=== PATIENT | male | born 1960 | race Caucasian/White ===

== ENCOUNTER 2016-09-24 18:09 | Inpatient (IN) | payer OTHER ==
[~2016-09-24] VITALS: Ht 167.6 cm; Wt 77.3 kg
[2016-09-24 19:10] VITALS: BP 122/74; PULSE 88; RESP 16; O2SAT 96
--- NOTE | 2016-09-24 21:38 | ED.REPORT ---
HPI-Psychiatric Illness Date of Service Sep 24, 2016 ED Provider: Ezio Hook MD This is a 56 year old male presenting to the emergency department due to suicidal ideation of unknown onset. Patient states that his spouse five months ago and that he has been walking through traffic to kill himself recently. Reports some hemoptysis and EtOH consumption today. Recently moved from [place]. Pt had an ED visit at [facility] in [place] yesterday with similar presentation. Records indicate that he reported suicidal ideation with auditory hallucinations, he hears his 's voice telling him to kill himself by walking in traffic. 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 Complaint: Psychiatric Complaint Nursing Notes Reviewed: Yes Allergies: Coded Allergies: No Known Allergies (Unverified , 09/24/16) General Time Seen by MD: 21:37 Chief Complaint Depressed Hx Obtained From: Patient Onset Occurred: Just prior to arrival Symptom Duration: Since onset Pertinent Negative: Pt denies other symptoms Recent Healthcare: No recent doctor visit, No recent hospitalization Similar Sx Previous: No Risk-Psychiatric Illness Suicide Risk Stratification RF Statements: Risk factors reviewed, No risk factors Past Medical History Past Medical History Chronic back pain COPD Lumbar degenerative disc disease Depression HTN PTSD Stroke Past Surgical History L knee surgery Reports: Appendectomy Social History Other Social History: Homeless Ambulatory Status Independent Review of Systems Unable to Obtain ROS Intoxicated (limited) Constitutional: Denies: Chills, Fever Respiratory: Reports: Prod cough, bloody Psychiatric: Reports: Depression, Suicidal ideation Physical Exam Initial Vital Signs Vital Signs (First) Date Time Temp Pulse Resp B/P Pulse Ox O2 Delivery O2 Flow Rate FiO2 09/24/16 19:10 36.0 88 16 122/74 96 Room Air Initial VS: Reviewed, Vital signs normal Head / Eyes: Atraumatic, Normocephalic, PERRL ENT: Mucous membranes moist, Conjunctiva normal, No scleral icterus Neck: Supple, Non-tender, Full range of motion Respiratory: Breath sounds normal, Clear to auscultation, No respiratory distress Cardiovascular: Regular rate & rhythm, Heart sounds normal, Intact distal pulses Abdomen / GI: Soft, Non-tender, No guarding, No rebound, No distention Extremities: Vascular intact, Neuro intact, No swelling, No tenderness Skin: Warm, Dry, No cyanosis Alertness: Positive: Sleeping but arousable Neurologic: No motor deficits, No sensory deficits, CN II - XII intact Abnormal Thinking / Perception: Positive: Suicidal, with plan Interpretation & Diagnostics Lab Results Interpretation Test 09/24/16 22:07 Hold Urine Received (Received) Re-Eval/Medical Decision Med Decision/Clinical Course 56-year-old male with pressured and suicidal ideation complicated by intoxication. He has had multiple episodes the last couple of weeks where he has been walking in traffic trying to get hit. He has been evaluated yesterday and today for the same presentation today. [facility] met [facility] criteria because he desires help. His care is now being turned over at change of shift to Dr. Narayanan for further evaluation for voluntary inpatient or close outpatient follow up Counseled Regarding: Diagnosis, Lab results, Need for follow-up Discharge & Departure Impression: Primary Impression: Depression with suicidal ideation Additional Impression: Alcohol intoxication Discharge Condition All VS Reviewed: Yes Condition: Stable Referrals: NOPCP (PCP) Care Transferred to: Dr. Narayanan Care Transferred at: 06:00 Scribe Attestation Portions of this note were transcribed by Maxwell Bowman. I, Dr. Hook personally performed the history, physical exam and medical decision-making; I reviewed and confirmed the accuracy of the information in the transcribed note. Signed by: enedelia Jeong. 09/24/2016, 06:00. Ezio Hook MD Sep 24, 2016 21:38 MAXWELL BOWMAN Sep 24, 2016 21:40
[2016-09-24 22:35] VITALS: BP 104/70; PULSE 84; RESP 18; O2SAT 97
[2016-09-25 05:04] VITALS: BP 135/84; PULSE 92; RESP 18; O2SAT 97
[2016-09-25] MEDS ORDERED: HYDROcodone-APAP 5-325 mg Tablet PO ONE ×3 (08:45→19:25)
[2016-09-25 10:06] LABS: BASOPHILS % (AUTO) 0.3 % (0-3); EOSINOPHILS % (AUTO) 0.9 % (0-5); MONOCYTES % (AUTO) 6.2 % (4-12); Mean Corpuscular Hemoglobin 29.8 pg (27.0-35.0); Mean Corpuscular Volume 87.8 fL (81-100); NEUTROPHILS % (AUTO) 76.1 % (40-74); Platelet Count 226 bil/L (150-400)
[2016-09-25 14:56] VITALS: BP 132/88; PULSE 74; RESP 22; O2SAT 92
[2016-09-25] MEDS ORDERED: Albuterol 2.5 mg/3 mL Inhalation Solution NEB ONE (15:00)
[2016-09-25 15:07] VITALS: PULSE 81; RESP 20; O2SAT 99
[2016-09-26] MEDS ORDERED: diphenhydrAMINE 50 mg Capsule PO ONE (01:40)
[2016-09-26] MEDS ORDERED: HYDROcodone-APAP 5-325 mg Tablet PO ONE (01:40)
[2016-09-26 05:56] VITALS: BP 115/85; PULSE 69; RESP 20; O2SAT 97
[2016-09-26] MEDS ORDERED: Albuterol 2.5 mg/3 mL Inhalation Solution NEB ONE (06:00)
[2016-09-26] MEDS ORDERED: BACL20TA PO (07:52)
[2016-09-26] MEDS ORDERED: DOXEPIN (07:54)
[2016-09-26] MEDS ORDERED: ALBU8.5H2 INHALATION ×2 (07:55→15:33)
[2016-09-26] MEDS ORDERED: DEPAKOTE (07:56)
[2016-09-26] MEDS ORDERED: BENADRYL ×2 (07:59→08:00)
[2016-09-26] MEDS ORDERED: Albuterol-Ipratropium 3 mL Inhalation Solution NEB PRN (09:05)
[2016-09-26] MEDS: Fluticasone 250 mCg Inhaler INHALATION SCH ×2 (09:30→20:30)
--- NOTE | 2016-09-26 09:53 | DRSVH ---
PROCEDURE: X-RAY CHEST ONE VIEW, PORTABLE ([id number]) INDICATIONS: cough TECHNIQUE: One view of the chest was acquired. COMPARISON: None. FINDINGS: Surgical changes and devices: None. Lungs and pleura: Nodular appearance to the hilar regions is evident without a focal area of consolid ation. There is no pleural effusion or pneumothorax. The lungs are otherwise well aerated. Mediastinum: Mediastinal contours appear normal. Heart size is normal. Bones and chest wall: No suspicious bony lesions. Degenerative changes of the spine and shoulders a re noted. Overlying soft tissues appear unremarkable. IMPRESSION: Mild hilar prominence probably is within normal limits for this patient. No convincing p neumonia is appreciated. If the patient's symptoms persist, please consider followup conventional ra diographic imaging of the chest. Dictated by: Luis Rogers M.D. on 09/26/2016 at 8:49 Approved by: Luis Rogers M.D. on 09/26/2016 at 8:52
[2016-09-26 13:58] VITALS: BP 119/81; PULSE 65; RESP 16; O2SAT 98
[2016-09-26 14:38] VITALS: BP 119/81; PULSE 65; RESP 16; O2SAT 98
[2016-09-26] MEDS ORDERED: IBUP-1827 PO (15:33)
[2016-09-26] MEDS ORDERED: TRAM50TA2 PO (15:35)
--- NOTE | 2016-09-26 17:14 | NUR ---
Nursing Admission Note: Patient arrived on the unit at 1405 in a wheel Chair escorted by ED Staff and security. RACHEL'd 72 hour hold as danger to self after he was found wandering in traffic stating he "shouldn't have to exist". States his had " 6 months ago". Denies SI/HI at this time. Odoriferous on admit. Requested and took a shower after admission process finished. Cooperative with admit. Good appetite at dinner. Easily approachable. Will monitor mood and behavior.
[2016-09-26] MEDS ORDERED: Magnesium Hydroxide 10 mL Oral Concentration PO PRN (17:25)
[2016-09-26] MEDS ORDERED: diphenhydrAMINE 50 mg Capsule PO PRN (17:25)
[2016-09-26] MEDS ORDERED: Benzocaine-Menthol Lozenge 2/Pkg PO PRN (17:25)
[2016-09-26] MEDS ORDERED: Alum-Mag Hydrox-Simeth 30 mL Suspension PO PRN (17:25)
[2016-09-26 17:50] VITALS: BP 112/74; PULSE 73; RESP 18
[2016-09-26] MEDS: chlordiazePOXIDE 25 mg Capsule PO PRN (20:33)
--- NOTE | 2016-09-27 03:45 | NUR ---
Nursing Note Lab Tester 7a to 7pm Pt in room at start of shift. Came out for HS meds, affect blunted, mood neutral. Pt reported pain of 8/10 in back. Given Ultram and Librium at 2031, stated "I feel like I am going through withdrawals. My hands are shaky". Pt was not diaphoretic, reported feeling restless, he was oriented x3. Pt declined vitals signs and went to bed. Pt reported depression and anxiety 8/10. Denies SI, plan or intent. Thoughts organized, linear and logical. Pt with productive cough. Pneumonia ruled out in the ED. Futicasone not availabe before pt went to bed, will administer in a.m. as a scheduled med. Declined duoneb before med stating " I need some cough medicine. Pt monitored q 15 minutes for safety, location and accountability. Addendum: 09/27/16 at 0513 by DARYN TRACY RN Pt slept through the night uninterrupted. In no acute distress. Monitoring ongoing.
[2016-09-27] MEDS: Fluticasone 250 mCg Inhaler INHALATION SCH ×2 (08:23→20:14)
[2016-09-27] MEDS: LORazepam 1 mg Tablet PO PRN ×2 (08:30→20:17)
[2016-09-27 12:00] VITALS: BP 108/75; PULSE 86; RESP 16
--- NOTE | 2016-09-27 12:28 | NUR ---
Duplicator Punch Operator./ c.m. S.:"I have problems. I hear my voice." O.: met with pt. and MD together for initial interview. Pt. is RACHEL 72 hrs hold as DTS. He had 19 hospitalizations at [facility] in [place] over the last 2 years. His last hospitalizations there was a year ago. He came to [facility] from [place] 1.5 weeks ago. He has appt. scheduled at [place] [facility] in [facility] but pt. refused to tell when. He has hx of 1 SA. He lives with his brother right now but he doesn't want to go back there. Pt. has a long hx of polysubstance abuse. He has hx of multiple TBI. He was diagnosed with PTSD and malingering. He "slept ok" last night. He denied SI/HI, denied AH at the time of the interview. He said that he "can see kind of traces" but he couldn't describe it better. He denied paranoid/delusional thoughts. He rated depression at 8/10 and anxiety at 8/10. He spent a lot of time in his room sleeping but he came to the Dining room for meals. A.: pt. is isolative, cooperative, quiet, has slurred speech, looks unkempt. P.: monitor behavior, encourage pt. to stay more in a public area, follow care plan.
--- NOTE | 2016-09-27 16:51 | NUR ---
Nursing Day Shift S: "Same as yesterday." O: Patient describing his day today. Has been in bed much of the day. Up for meals with a good appetite. C/O increased anxiety this AM at an 8/10 and received Ativan 1 mg PO with effectiveness. Has not c/o pain thus far today. Approachable. Rates anxiety and depression currently at "7-8/10". Denies harmful thoughts and hallucinations. A: Isolative. Quiet. P: CPOC. Monitor mood and behavior.
[2016-09-27] MEDS: chlordiazePOXIDE 25 mg Capsule PO PRN (17:01)
--- NOTE | 2016-09-27 17:35 | NUR ---
OBSERVATIONS 0700 TO 1900 Pt was isolative, spending the majority of the shift in bed. Pt came out for meals and to watch some TV. Pt was pleasant and cooperative with staff. When asked how the pt was doing mentally and physically pt replied, "Not so good" to both. Pt was monitored every 15 min as ordered.
--- NOTE | 2016-09-27 19:04 | HP ---
[address] [address] HISTORY AND PHYSICAL PATIENT: TONY DE LOS SANTOS : 1960 MR#: [id number] ADMIT: 09/26/2016 JOB ID: [id number] BRIEF HISTORY OF PRESENT ILLNESS: This 56-year-old gentleman apparently was living in [place], [place], and moved to the [facility] within the last couple of weeks. 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 Apparently, the patient's of 25 years 5-6 months back because of a brain aneurysm and the patient does struggle with issues of depression since then. [facility] [place] He says he does not care for them and is going to go in and see the walk-in clinic in [place] in the near future. He carries a diagnosis of PTSD which he says was diagnosed in the . Chart also indicates history of malingering and at least 19 inpatient hospitalizations in the last two years. The patient says he was in service from to . He was never in the combat zone or in active combat. He was in the [employer]. He also tells me that he has a history of traumatic brain injury and has had some legal issues in the past including those related to substance abuse. He is presently unemployed. He started having increasing depression, hopelessness, thoughts of suicide. He was hearing his 's voice asking him to come and join her. He says these have been there for at least the last 5-6 months. He admits to hearing his name being called from time to time even before that. He says about six months back he had a gun to his head but did not have a firing. He has since given the gun to his friend. He denies a family history of completed suicide. He denies current intent or plan, contracts for safety but is unable to explain to me what was different between yesterday and now. He does admit that he has been drinking plus drinks a day. When I ask him about DTs in the past he says yes but is unable to tell me what DTs are. He also has been smoking pot. He also smokes. PAST HISTORY: At this point, I do not know what medications were tried. He was able to name Thorazine, Haldol, and Sinequan or doxepin but is unable to also tell me whether he with depression even when he was not drinking and just smoking pot and whether any particular medicine was more effective than the other. FAMILY HISTORY: He says his mother had depression. He denies a family history of bipolar disorder, schizophrenia, or completed suicide or substance abuse. SUBSTANCE ABUSE: Dictated most of it in my history of present illness. He says he had one treatment in the 80s. MEDICAL HISTORY: No known drug allergies. COPD, albuterol. he is also on A Diskus for a bronchodilator. Multiple TBIs. Those are the only two medical issues. MENTAL STATUS EXAMINATION: Anxious. Significant degree of breathing difficulty. Denied any pain except for back pain but he said he had a lot of ruptured disk and pinched nerves. No spontaneous delusions. Did report hallucinations, commanding, asking him to hurt himself. Thoughts of suicide. Passive at this point, no current intent or plan. Contracts for safety. Sustained attention on my questions. Short-term recall was unimpaired. Abstract thinking was difficult even with proverbs or similarities. Intelligence: Low average to average. Verbalizing a need for help but limited insight into the role substance abuse played in his mood symptoms. Harrison I. Unspecified depressive disorder, alcohol use disorder, cannabis use disorder, posttraumatic stress disorder by history. Harrison II. Deferred. Harrison III. Chronic obstructive pulmonary disease, history of traumatic brain injury, chronic back pain. Harrison IV. Substance abuse, 5-6 months back. Homeless. Harrison V. 25 TREATMENT PLAN: 1. Continue him on suicide precautions. 2. Hold off on antidepressants. Unable to decide whether this is primary or substance related etiology. 3. Monitor alcohol withdrawal. Thiamine as needed. 4. Albuterol as a rescue inhaler. Continue his other treatment for COPD. 5. Strength. Also continue to try and gather collateral information from out-spaced outside sources. Explore substance abuse treatment. 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 May have to look into housing. 6. Strength He is in a monitored protected environment. 7. Weakness: Significant substance abuse, social isolation, recent losses. Expected length of stay 5-7 days.
[2016-09-27] MEDS: guaiFENesin DM 200-20 mg/10 mL Syrup PO PRN (20:17)
[2016-09-27 22:37] VITALS: BP 128/86; PULSE 79; RESP 16
--- NOTE | 2016-09-27 22:38 | NUR ---
Nursing Note 7pm to 11pm Pt in day room at start of shift watching tv. sitting with peers but not interacting with peers. Affect blunted, mood depressed, pt reports depression 09/22 and anxiety 10/22 " I don't know where I will be going from here". Pt mumbles and is difficult to understand. Pt appears dependent, helpless and hopeless. Reports pain 01/22 but ultram was not due and pt declined ibuprofen and tylenol. He has a snack, took HS meds and went to bed. Addendum: 09/27/16 at 2243 by DARYN TRACY RN Amended: Links added.
--- NOTE | 2016-09-28 02:27 | NUR ---
Observations 1900 to 0700 Pt affect is flat. Pt spent his night either in front of the TV and in his room. Pt even when out in the DR the Pt seems to isolate to himself. Pt went to bed but came out a few times to have a few snacks but then returned to his room. Pt first appeared asleep at 21:30 and was observed every 15 minutes through the night as directed.
[2016-09-28] MEDS: LORazepam 1 mg Tablet PO PRN (02:41)
[2016-09-28] MEDS: guaiFENesin DM 200-20 mg/10 mL Syrup PO PRN ×2 (02:42→16:48)
--- NOTE | 2016-09-28 04:01 | NUR ---
Nursing Note 11pm to 7am Pt with interrupted sleep this shift. Up multiple times throughout the night, c/o difficulty sleeping and back pain. Pt got Ativan 1mg x2, Tramadol 100mg for pain x2 , Vistaril 50 mg po, prn and Robitussin x2 for cough. Pt returned to his room, declined hot pack and declined prn albuterol inhaler. Pt in no acute distress. Monitored q 15 minutes for safety, location and accountability.
[2016-09-28 08:25] VITALS: BP 104/65; PULSE 72; RESP 16
[2016-09-28] MEDS: Fluticasone 250 mCg Inhaler INHALATION SCH ×2 (08:25→21:33)
--- NOTE | 2016-09-28 09:42 | PROG NOTE ---
[address] [address] PROGRESS NOTE PATIENT: TONY DE LOS SANTOS : 1960 MR#: [id number] ADMIT: 09/26/2016 JOB ID: [id number] DATE: 09/28/2016 IDENTIFICATION: A 56-year-old, gentleman hospitalized involuntarily on this unit September 26, 2016. Patient seen and discussed with staff. DIAGNOSIS: 1. Unspecified depressive disorder. 2. Nicotine dependence. 3. Posttraumatic stress disorder by history. 4. Alcohol use disorder. He received 1 Librium p.r.n. and then 3 Ativan p.r.n. twice to help him with pain issues. When I ask him about how he is doing, he says "I am alive." He denies hallucinations this morning. He says his depression is still an 8 on a scale of 0-10 with 10 being the worst and anxiety at a 10. He does report passive suicide ideation. No current intent or plan and contracts for safety on the unit. I discussed him with the staff. We will discontinue the Ativan p.r.n. Keep the Librium p.r.n. as is. Encourage him to participate in the treatment modalities of the unit. Thiamine was started yesterday. No spontaneous delusions in the session with me. No agitation. Continue the alcohol withdrawal protocol. Once he is out of it explore the need for antidepressants as required. He is also going to require setting about aftercare services including possible substance abuse treatment.
--- NOTE | 2016-09-28 10:44 | NUR ---
Adult Specialist./c.m. S.: "I'm alive." O.: met with pt. and MD together in pt.'s room. He was in bed sleeping in the middle of the morning. He slept most of the day yesterday. MD talked to pt. about meds and taking too much Ativan in particular. Pt. didn't sleep well last night - "off and on". He denied HI, SI - "like yesterday, nothing changed." He denied AH/VH or paranoid/delusional thoughts. He rated depression and anxiety at 8/10. He spent most of the morning in bed today except for meals. A.: pt. is isolative, quiet, seeking meds, looks disheveled. P.: monitor behavior, encourage pt. to stay away from his room and to participate in unit activities; follow care plan.
[2016-09-28] MEDS: chlordiazePOXIDE 25 mg Capsule PO PRN ×2 (16:46→21:33)
--- NOTE | 2016-09-28 16:50 | NUR ---
Nurses PRN Patient requested medications for back pain8/10 and anxiety that "feels like I'm jumping out of my skin". His pulse was 100 with mild hand tremors.Patient received Tramadol 100mg,Vistaril 50mg,Ibuprofen 600mg and Librium 50mg,will assess response.
--- NOTE | 2016-09-28 17:08 | NUR ---
Nursing Dayshift: S: "How long do people usually stay here?" O: Patient discussing length of stay and housing options. Agreed to discuss with CM tomorrow. Eating well at meals. Has been in his room much of the day resting. Up at present watching TV. Acknowledges withdrawal at present and has received Librium 50 mg at 1646. Has c/o back pain and received hydroxyzine 50 mg and tramadol 100 mg at 0838 and 1648. Also received ibuprofen 600 mg at 1646. Rates anxiety and depression at an 8/10, denies harmful thoughts and hallucinations. A: Flat affect. Forlorn. P: CPOC. Monitor mood and behavior. Monitor for effectiveness of medications.
--- NOTE | 2016-09-28 17:13 | NUR ---
Observations 0700 to 1900 Pt affect and mood was flat, isolative and sullen. Pt speech and eye contact was ok. Pt was in his room most of the shift, coming out for meals. Pt attended meals in D.R. Pt had a good appetite and ate 100% of his meals. Pt maintained behavior throughout the shift. Pt was polite and cooperative. Pt declines to participate in unit activities. Pt keeps to himself and is minimally social with staff and peers when approached. Pt only gives short answers when approached. Pt declined coming out for community meeting. Pt was observed every 15 minutes throughout the shift as ordered. Pt is currently watching TV with peers.
--- NOTE | 2016-09-29 04:08 | NUR ---
Nursing Note Nutrition Specialist Pt asleep at start of shift, woken up to give HS meds, reports he is no acute distress " just tired". Pt woke up at 0133 requesting Vistaril and Ultram for pain returned to bed. Pt denies sx of ETOH withdraw Monitoring ongoing.
[2016-09-29] MEDS: Fluticasone 250 mCg Inhaler INHALATION SCH ×2 (07:40→20:48)
[2016-09-29] MEDS: Albuterol HFA 60 Puff 8 Gm Inhaler INHALATION PRN ×2 (07:40→18:30)
[2016-09-29 08:28] VITALS: BP 87/58; PULSE 75; RESP 15
[2016-09-29] MEDS: guaiFENesin DM 200-20 mg/10 mL Syrup PO PRN (11:37)
--- NOTE | 2016-09-29 16:07 | PROG NOTE ---
[address] [address] PROGRESS NOTE PATIENT: TONY DE LOS SANTOS : 1960 MR#: [id number] ADMIT: 09/26/2016 JOB ID: [id number] DATE: CHIEF COMPLAINT: "My last drink was on Thursday." HISTORY OF PRESENT ILLNESS: As stated above, the patient did identify that he has had consistent usage of alcohol, up to 10 drinks per day, over the past 5-6 months. The patient reports that his of many years approximately 5-6 months ago and he elected to move out to the [facility] to live with his brother in [place]. He reports that he continues to express some desires of craving alcohol ingestion. He reportedly has been given p.r.n. doses of Ativan and appears to be detoxing without difficulties at this time. He did note that he has a long-term history of seizures and hallucinations in the past and has also been admitted to the [facility] chemical dependency unit in the past. He reportedly has been seeking out medications per nursing staff report for both pain management, including Ultram, which has been prescribed by his primary care physician, and also benzodiazepines. He reportedly openly identifies significant history of chronic pain and has been treated through the [facility] consistently. There has been reference through the [facility] reports on review of malingering, and it is my understanding that initially they attempted to refer him to the [facility], but evidently the patient was declined due to this presentation. By history, the patient reportedly is service-connected. He was never in combat or active duty but does carry a previous diagnosis of PTSD. He reportedly also suffered TBI and evidently has some legal issues related to this. He reports that he is currently homeless and that he cannot go back to live with his brother, openly identifying that his brother is a drug dealer and a pick up truck driver and he feels unsafe in that home environment. I have discussed the possibility of [facility]. He is open to such and discussion will be held with the block and case maker. OBJECTIVE: On mental status exam, the patient makes intermittent eye contact. He is questionable in his reliability and validity. His speech is slurred to some extent. His mood is mildly depressed. Affect is incongruent. His thought process shows no evidence of racing thoughts, flight of ideas, loose or disconnected thinking. Thought content, he denied any evidence of current suicidal ideation. The patient reportedly had suicidal intent prior to his admission. He denies any paranoia, hallucinations, or delusions at this time. He does indicate that he does hear the voice of his calling for him. He was alert, oriented to time and place. His attention and concentration are intact. His insight and judgment are deemed poor. PHYSICAL EXAM: Vital signs, current: Temperature is 36.1, pulse 75, respirations 15, BP 87/58. MEDICATION REVIEW: Includes: 1. Thiamine 100 mg daily. 2. Albuterol inhalers for history of COPD. 3. Vistaril 50 mg q.6 h. 4. Librium 50 mg q.4 h. 5. Tramadol 100 mg q.6 h. 6. Flovent 2 puffs b.i.d. ASSESSMENT: Momence I. 1. Alcohol use disorder in a controlled environment, severe. 2. Cannabis use disorder in a controlled environment, severe. 3. Posttraumatic stress disorder, chronic by history. 4. Depressive disorder, not otherwise specified. 5. Malingering, by history. Momence II. Cluster B personality features. Momence III. 1. History of chronic obstructive pulmonary disease. 2. History of traumatic brain injury. 3. Chronic back pain. Momence IV. Stressors are noted for substance use, alcohol use, loss of , and current status of homelessness. Momence V. Global Assessment of Functioning current 30. PLANS: 1. Recommendations for referrals to [facility] for possible access of chemical dependency assessment and treatment. 2. Continuation of all medications noted with a plan of discharge for tomorrow.
--- NOTE | 2016-09-29 16:45 | NUR ---
Observations 0900 to 2130 Pt affect and mood was flat, isolative, guarded and sullen. Pt speech and eye contact was ok. Pt was in his room most of the shift, coming out for meals. Pt attended meals in D.R. Pt had a good appetite and ate 75% of breakfast and declined eating lunch. Pt maintained behavior throughout the shift. Pt was polite and cooperative. Pt declines to participate in unit activities. Pt keeps to himself and is minimally social with staff and peers when approached. Pt only gives short answers when approached. Pt declined coming out for community meeting. Pt was observed every 15 minutes throughout the shift as ordered. Pt is currently watching TV.
--- NOTE | 2016-09-29 17:16 | NUR ---
Catering Coordinator./ c.m. S.:"I'm not very good. I have a headache." O.: met with pt. in his room prior to dinner. He was in bed sleeping but he agreed to talk to the ticket writer. He "slept alright last night". He denied HI, denied AH/VH, rated depression and anxiety at 8/10. He declined a referral to [facility] in [facility] saying that he "won't go to a senior care." He agreed to go to [facility] in [facility] and agreed to get outpatient CD Assessment done through [facility]. He didn't know where he wanted to stay but he asked for a bus pass or bus tickets. Director Of Annual Giving explained to pt. that we don't have that service here in the unit. Director Of Annual Giving asked pt. to think about his discharge plan by tomorrow morning. Pt. didn't want to go to a public area but ticket writer encouraged pt. to stay in his room as less as possible. A.: pt. is isolative, quiet, seeking meds, refusing senior care options. He is sleeping a lot, looks disheveled. P.: monitor behavior, encourage pt. to spend more time in a public area, practice deep breathing for anxiety and pain management, work on discharge plan and follow up; follow care plan.
--- NOTE | 2016-09-29 17:32 | NUR ---
Nursing: Day shift: Pt has been out of room to watch TV, eat meals, and request meds. REquested and received OR meds of Hydroxyzine and Albuterol inhaler at 0740. Had requested LIbrium but his VS were not within parameters for LIbrium. When sports book writer interacted with Alfredo at 1140, to evaluate the effect of hydroxyzine on his anxiety, he stated it "had not effect". At 1140, he requested and received robitussin syrup for cough, ultram for pain at 8/10 and Benadryl for anxiety at 8/10. At 1715, stated that the ultram helped his back pain, the hydroxyzine did nothing (either time today), and the robitussin helped his cough. Was administered Hydroxyzine at 1630 again for anxiety. At 1740, approached nursing station and stated " I need to be back on Thorazine. I 'm hearing voices. They're scaring the hell out of me. I've had this problem for years. and it's getting worse. A: HAllucinating (per pt. report). Anxious. Discomfort in back P: Assess for effectiveness of PRN meds administered. Plan toward anticipated discharge tomorrow. Addendum: 09/29/16 at 1756 by WILLIAN ZEPEDA RN Amended: Links added.
[2016-09-29 19:21] VITALS: BP 96/52; PULSE 77
--- NOTE | 2016-09-30 03:22 | NUR ---
Observations 1900 to 0700 Pt affect is flat. Pt spent his night either in front of the TV and in his room. Pt even when out in the DR the Pt seems to isolate to himself. Pt first appeared asleep at 21:30 and was observed every 15 minutes through the night as directed.
[2016-09-30] MEDS: Fluticasone 250 mCg Inhaler INHALATION SCH (08:08)
[2016-09-30] MEDS: Albuterol HFA 60 Puff 8 Gm Inhaler INHALATION PRN (08:11)
--- NOTE | 2016-09-30 10:53 | PCM.DIMED ---
Discharge Instructions Date of Service Sep 30, 2016 Dates of Hospitalization Sep 26, 2016 at 14:00 Discharge Diagnosis Discharge Diagnosis Major Depression recurrent nonpsychotic Severe Somatoform Pain DO Malingering Complicated Bereavement Diet No restrictions Activity No restrictions Yves Regan DO Sep 30, 2016 10:53
[2016-09-30 12:45] VITALS: BP 95/68; PULSE 64; RESP 16
--- NOTE | 2016-09-30 13:12 | NUR ---
Nursing: Day shift and Discharge. S/O: "I came here for help. ...I'm going to hurt myself or someone else." Alfredo made above comments when securities underwriter asked him about filling out his Early warning Signs and Safety Plan form in preparation for discharge. Later, at time of leaving the unit, he nodded (affirmative) when I stated, "You WILL take care or yourself between now and your appointment at the [facility] on Thursday." After meeting with the doctor, Alfredo stated, "I just want my belongings so I can get out of here." When asked where he was going, he stated, "I will just walk. I have no friends to pick me up." Alfredo did gather his belongings, filled out all discharge forms except the EWS and SP, and left unit, unaccompanied, ambulatory, at 1240. Addendum: 09/30/16 at 1421 by WILLIAN ZEPEDA RN All outcomes were met the following two that are ongoing at discharge: Bright affect and future oriented and Exhibit reduced Risk for self harm.
--- NOTE | 2016-09-30 14:03 | NUR ---
Price Accuracy Supervisor./ c.m. S./O.: pt. refused to work on Safety plan and goals. [facility] [place] called [facility] [place] and scheduled intake appt. for mental health services with Alonso James on October 03, 2016 at 8:30 am ([phone]). [place] was also told that pt. had already scheduled appt. at [facility] today at 10:30 am. Pt. never mentioned that appt. Pt.'s brother was passing by today and he agreed to stop at the hospital to hand picker pt. after discharge. A.: pt. is reluctant to take responsibility for his outpatient care. He has supportive brother. P.: monitor behavior, follow care plan.
--- NOTE | 2016-09-30 15:18 | DIS ---
[address] [address] DISCHARGE SUMMARY PATIENT: TONY DE LOS SANTOS : 1960 MR#: [id number] ADMIT: 09/26/2016 JOB ID: [id number] DIS: 09/30/2016 ADMITTING DIAGNOSES: Include: [place] I. 1. Depressive disorder, not otherwise specified. 2. Alcohol use disorder, chronic, severe. 3. Cannabis use disorder, chronic, severe. 4. Posttraumatic stress disorder, chronic by history. [place] II. Deferred. [place] III. 1. History of chronic obstructive pulmonary disease. 2. History of traumatic brain injury. 3. Chronic pain disorder. [place] IV. 1. Substance abuse. 2. History of spouse within the past six months. 3. Homelessness. [place] V. Global Assessment of Functioning current 25. DISCHARGE DIAGNOSES: Include: [place] I. 1. Major depressive disorder, recurrent type, not severe. 2. Somatoform pain disorder. 3. Malingering. [place] II. Deferred. [place] III. Same as above. [place] IV. Stressors are same as above. [place] V. Global Assessment of Functioning current 50. REASON FOR ADMISSION: Patient was a 56-year-old male admitted from [place], who had moved to the [facility] with the past couple weeks. He reportedly stated that he had been living with a brother who evidently is a drug dealer and a tank truck operator. The patient identified a state of hopelessness, helplessness, and some suicidal ideation. During the course of hospitalization, records were reviewed from the [facility] which noted greater than [address] [facility] in the past. There was noted diagnoses including malingering with intent of obtaining pain medications. He was maintained on Ultram with no prescriptions given of opiates, and also given doses of Librium due to acute alcohol intoxication. Throughout hospital course, patient indicated that he would be willing to reconnect with the [facility] in [place] with recommendations for chemical dependency treatment. The patient on the evening prior to discharge indicated that he was experiencing hearing the voices of his spouse calling from the grave and was requesting various antipsychotics. This was not dispensed due to the patient's long-term history of addiction and purposeful intent of obtaining medications. It was felt that this was more of a malingering variant and he was highly encouraged to utilize alternative coping skills including grief and loss support systems. On the day of discharge, the patient indicated that his brother would be driving through to pick him up in the city of [place] and that he would be on the road for several weeks. He was encouraged to schedule and maintain [facility] the . However, the patient gave limited response. There was no evidence of imminent danger and it was felt that patient was cleared for discharge accordingly. MENTAL STATUS EXAM: General appearance: The patient was questionable in his validity throughout. He made intermittent eye contact. He showed no evidence of acute concerns of imminent danger. He indicated that he had a plan of actually going on the road with his brother for several weeks and expressed no evidence of suicidal ideation to myself. This is in contrast to previous statements to various nursing staff within the past 24 hours, and it was clear that the patient had underlying manipulative intent of obtaining housing and also medication interventions. The patient showed no evidence of paranoia, hallucinations. He was alert, oriented to time and place. His attention and concentration were poor. Insight and judgment were poor. DISCHARGE PLANS: Include: 1. Discharge to the care of self. 2. Patient was highly encouraged to maintain the appointment scheduled at the [facility] on October 03 at 8:30 a.m. 3. Patient was encouraged to maintain a clean and sober lifestyle. However, the patient has declined immediate access to chemical dependency interventions including crisis, respite, and other referrals. 4. Recommendations for continuation of medications including doses of albuterol for noted COPD, Flovent, and p.r.n. usage of Ultram. No prescriptions were given.
[2016-09-30] MEDS ORDERED: CHLO50TA PO (21:47)
[2016-10-01] MEDS ORDERED: ZIT250 PO (05:29)
[2016-10-01] MEDS ORDERED: PRE20 PO (05:29)
== END 2016-09-30 12:40 | disposition other institution (70) | DRG 885 ==
LOC: SED 18:09 → MHC 09-26 14:00
PROVIDERS: ADMIT Psychiatry & Neurology Psychiatry; ATTEND Psychiatry & Neurology Psychiatry
DX: F33.9 Major depressive disorder, recurrent, unspecified (principal); R45.851 Suicidal ideations; Z76.5 Malingerer [conscious simulation]; Z65.3 Problems related to other legal circumstances; Y90.5 Blood alcohol level of 100-119 mg/100 ml; Z87.820 Personal history of traumatic brain injury; Z59.0 Homelessness; F17.210 Nicotine dependence, cigarettes, uncomplicated; F10.129 Alcohol abuse with intoxication, unspecified; F12.10 Cannabis abuse, uncomplicated; F43.12 Post-traumatic stress disorder, chronic; F45.9 Somatoform disorder, unspecified

== ENCOUNTER 2016-09-30 19:59 | Emergency (ER) | payer OTHER ==
[~2016-09-30] VITALS: Ht 170.2 cm; Wt 68.0 kg
[~2016-09-30 19:59] MED LIST: ALBU8.5H2 INHALATION; BACL20TA PO; BENADRYL; DEPAKOTE; IBUP-1827 PO; TRAM50TA2 PO
[2016-09-30 20:39] VITALS: BP 112/77; PULSE 84; RESP 16; O2SAT 96
--- NOTE | 2016-09-30 21:25 | ED.REPORT ---
HPI-General Illness Date of Service Sep 30, 2016 ED Provider: Frank Valverde MD A 56 year old homeless male with a medical history including COPD, HTN, depressive disorder, alcohol use disorder, malingering, chronic back pain, and a recent psychiatric admit presents to the ED reporting concern that he does not have a place to stay for the night until his brother picks him up tomorrow. The patient was discharged from the hospital this morning after a three night stay with diagnoses including major depressive disorder, somatoform pain disorder, and malingering. He currently reports back pain, shortness of breath, auditory hallucinations, and hemoptysis, all of which were present at his discharge this morning. The patient denies other symptoms. He admits to drinking alcohol today. Nursing Notes Stated Complaint: MENTAL HEALTH Chief Complaint: Psychiatric Complaint Nursing Notes Reviewed: Yes Allergies: Coded Allergies: No Known Allergies (Unverified , 09/24/16) Scheduled Baclofen (Baclofen) 20 Mg Tablet 20 MG PO TID Chlorpromazine (Chlorpromazine) 50 Mg Tablet 50 MG PO TID Scheduled PRN Albuterol HFA (Proair HFA) 8.5 Gm Hfa.aer.ad 2 PUFFS INHALATION Q4H PRN PRN For Shortness of Breath Tramadol (Tramadol) 50 Mg Tablet 100 MG PO Q6H PRN PRN For Pain General Time Seen by MD: 21:24 Chief Complaint Other (Homelessness) Hx Obtained From: Patient Arrived By: Walk-in Sudden in Onset?: Yes Onset Occurred: Onset unknown Symptom Duration: Since onset Location: : Back Quality: Painful Severity: Current: Moderate Severity: Maximum: Moderate Context Related History: Reports COPD, Reports Psychiatric history Recent Healthcare: Recent doctor visit, Recent hospitalization Similar Sx Previous: Yes Past Medical History Past Medical History Chronic back pain COPD Lumbar degenerative disc disease Depression HTN PTSD Stroke Depressive disorder Alcohol use disorder Cannabis use disorder TBI Chronic pain Somatoform pain disorder Malingering Past Surgical History L knee surgery Appendectomy Smoking History Unknown if Ever Smoker Social History Other Social History: Homeless Ambulatory Status Independent Review of Systems + Homelessness Full Review of Systems Constitutional: Denies: Fever Respiratory: Reports: Hemoptysis, Shortness of breath GI: Denies: Diarrhea, Vomiting Musculoskeletal: Reports: Back pain Psychiatric: Reports: Hallucinations, auditory Complete sys rev & neg: except as marked. Physical Exam Vital Signs Vital Signs Date Time Temp Pulse Resp B/P Pulse Ox O2 Delivery O2 Flow Rate FiO2 09/30/16 20:39 36.1 84 16 112/77 96 Room Air Initial VS: Reviewed Head / Eyes: Atraumatic, Normocephalic ENT: Conjunctiva normal, No scleral icterus Neck: Supple, Full range of motion Respiratory: No respiratory distress Neurologic: Alert, Oriented, Nonfocal General/Constitutional: Awake, Alert, No acute distress Patient is mumbling and unfocused in his history Abnormal Thinking / Perception: Negative: Delusions - grandeur, Delusions - paranoid PSYCHIATRIC: Patient is not responding to internal stimuli Re-Eval/Medical Decision Med Decision/Clinical Course 56-year-old with homelessness, chronic psych issues, and substance abuse, presents with a plethora of complaints, fairly clearly aimed at securing housing for the night. He has no coherent story associated with any of his complaints. As he was just discharged today from this hospital and is recognized as a malingerer around his homelessness, he was offered some warm clothing and blankets. No additional evaluation indicated at this time. As I went to get these items to discharge him, he departed prior to receiving instructions and the blankets. Source of Hx: Old records Time of Eval: 21:58 Patient Status: Condition improved Re-Evaluation/Progress Note: Discussed with patient diagnosis and plan for discharge. Follow-up and return to the ER instructions given. Patient agrees with plan for care and all questions were addressed. Counseled Regarding: Diagnosis, Need for follow-up, When/why to return to ED Discharge & Departure Shift Change Sign-Out Response to Therapy: Unchanged Primary Impression: Homelessness Additional Impressions: Alcohol abuse Suicidal ideation History of suicidal ideation Malingering Disposition: Home Discharge Condition All VS Reviewed: Yes Condition: Improved Patient Instructions: Abuse of Alcohol (ED) Additional Instructions: Stop using alcohol. You may resume your Thorazine at 50 mg three times daily to help with the voices. [facility] is open in the morning, and may have place for you, or supplies to help you with dealing with your current problems. [address] [place] [address] phone is [phone]. Referrals: NOPCP (PCP) [facility] Scribe Attestation Portions of this note were transcribed by Kyra Lagunas. I, Dr. Valverde, personally performed the history, physical exam, and medical decision-making; I reviewed and confirmed the accuracy of the information in the transcribed note. Signed by: Celso Jin, 10/01/2016, 02:03 copies to: [facility] Frank Valverde MD Sep 30, 2016 21:25 KYRA LAGUNAS Sep 30, 2016 21:33
[2016-09-30] MEDS ORDERED: CHLO50TA PO (21:47)
[2016-10-01] MEDS ORDERED: PRE20 PO (05:29)
[2016-10-01] MEDS ORDERED: ZIT250 PO (05:29)
== END 2016-09-30 22:20 | disposition home or self-care (01) ==
LOC: SED 19:59
DX: R45.851 Suicidal ideations (principal); F10.10 Alcohol abuse, uncomplicated; I10 Essential (primary) hypertension; J44.9 Chronic obstructive pulmonary disease, unspecified; M54.9 Dorsalgia, unspecified; G89.29 Other chronic pain; Z86.73 Personal history of transient ischemic attack (TIA), and cerebral infarction without residual deficits; Z59.0 Homelessness; Z76.5 Malingerer [conscious simulation]; Z79.51 Long term (current) use of inhaled steroids

== ENCOUNTER 2016-10-01 04:21 | Emergency (ER) | payer OTHER ==
[~2016-10-01 04:21] MED LIST changes: -BENADRYL; +CHLO50TA PO; -DEPAKOTE; -IBUP-1827 PO
[2016-10-01 04:25] VITALS: BP 121/89; PULSE 10; RESP 32; O2SAT 91
--- NOTE | 2016-10-01 04:26 | ED.REPORT ---
HPI-General Illness Date of Service Oct 01, 2016 ED Provider: Dr. Frank Valverde M.D. A 56 year old male with a medical history including COPD, HTN, malingering, and a recent psychiatric admit presents to the ED reporting worsening intermittent hemoptysis onset one week ago. Associated symptoms include wheezing, shortness of breath, cough, chest pain, subjective fever, and chills. The patient was discharged from the hospital yesterday morning after a four night psychiatric admit and was seen in the ED last night with concerns for his homelessness. Nursing Notes Stated Complaint: COUGHING UP BLOOD Chief Complaint: Respiratory Distress Nursing Notes Reviewed: Yes Allergies: Coded Allergies: No Known Allergies (Unverified , 10/01/16) Scheduled Azithromycin (Zithromax) 250 Mg Tablet 250 MG PO DAILY Baclofen (Baclofen) 20 Mg Tablet 20 MG PO TID Chlorpromazine (Chlorpromazine) 50 Mg Tablet 50 MG PO TID Prednisone (PredniSONE) 20 Mg Tablet 60 MG PO DAILY Scheduled PRN Albuterol HFA (Proair HFA) 8.5 Gm Hfa.aer.ad 2 PUFFS INHALATION Q4H PRN PRN For Shortness of Breath Tramadol (Tramadol) 50 Mg Tablet 100 MG PO Q6H PRN PRN For Pain General Time Seen by MD: 04:25 Chief Complaint Other (Hemoptysis) Hx Obtained From: Patient Arrived By: Walk-in Sudden in Onset?: Yes Onset Occurred: 1 week ago Symptom Duration: Intermittent Location: : Chest Quality: Painful Severity: Current: Moderate Severity: Maximum: Moderate Associated with: Reports: Chest pain, Cough, Fever, Shortness of breath Pertinent Negative: Relieved by nothing Context Related History: Reports COPD, Reports Psychiatric history Recent Healthcare: Recent doctor visit, Recent hospitalization Past Medical History Past Medical History Chronic back pain COPD Lumbar degenerative disc disease Depression HTN PTSD Stroke Depressive disorder Alcohol use disorder Cannabis use disorder TBI Chronic pain Somatoform pain disorder Malingering Past Surgical History L knee surgery Appendectomy Smoking History Current Every Day Smoker Social History Other Social History: Homeless Ambulatory Status Independent Review of Systems Full Review of Systems Constitutional: Reports: Chills, Fever (Subjective) Respiratory: Reports: Hemoptysis, Non-productive cough, Shortness of breath, Wheezing Cardiovascular: Reports: Chest pain GI: Denies: Diarrhea, Vomiting Complete sys rev & neg: except as marked. Physical Exam Vital Signs Vital Signs Date Time Temp Pulse Resp B/P Pulse Ox O2 Delivery O2 Flow Rate FiO2 10/01/16 05:44 36.5 101 22 129/77 100 Room Air 10/01/16 05:08 81 20 98 Room Air 10/01/16 04:37 36.5 10/01/16 04:25 35.4 10 32 121/89 91 Room Air Initial VS: Reviewed Head / Eyes: Atraumatic, Normocephalic ENT: Conjunctiva normal, No scleral icterus Skin: Warm, Dry, No cyanosis General/Constitutional: Awake, Alert Poor eye contact Respiratory / Chest: Breath sounds = bilat, No respiratory distress, No rales Wheezing / Retractions: Positive: Wheezing moderate (Diffuse) Cardiovascular: Heart rate NL, Regular rhythm, Heart sounds NL Neurologic: Oriented X3 Tardive dyskinesia Interpretation & Diagnostics X-Ray Chest Interpretation Chest Xray Interpretation: Nothing acute View: AP & lat Interpretation / Wet Read by: Wet read ED physician Re-Eval/Medical Decision Med Decision/Clinical Course 56-year-old presents again tonight now with complaint of hemoptysis. He has obvious wheezing and COPD with continued cigarette abuse. No infiltrate on his x-ray tonight. He is provided with albuterol and a spacer, azithromycin initial dose and prescription, prednisone five-day course, and ibuprofen for relief of his back pain. He is discharged in stable condition. Source of Hx: Old records Time of Eval: 05:05 Patient Status: Condition improved Re-Evaluation/Progress Note: Discussed with patient x-ray results, diagnosis, and plan for discharge after medication. Follow-up and return to the ER instructions given. Patient agrees with plan for care and all questions were addressed. Counseled Regarding: Diagnosis, Need for follow-up, When/why to return to ED Discharge & Departure Shift Change Sign-Out Response to Therapy: Improved Primary Impression: Hemoptysis Additional Impressions: COPD (chronic obstructive pulmonary disease) with acute bronchitis COPD (chronic obstructive pulmonary disease) Homelessness Disposition: Home Discharge Condition All VS Reviewed: Yes Condition: Improved Patient Instructions: Acute Bronchitis (ED), Acute Hemoptysis (ED), Chronic Obstructive Pulmonary Disease (ED) Additional Instructions: Stop smoking Albuterol puffer two puffs every four hours as needed for cough and wheeze Azithromycin one tab daily for four more days Prednisone three tabs daily for five days Follow-up with your doctor in the office or [facility] Referrals: [facility]CP (PCP) [facility] Scribclaudia Attestation Portions of this note were transcribed by Kyra Lagunas. I, Dr. Valverde, personally performed the history, physical exam, and medical decision-making; I reviewed and confirmed the accuracy of the information in the transcribed note. Signed by: Celso Jin, 10/01/2016, 05:57 copies to: [facility] Frank Valverde MD Oct 01, 2016 04:26 KYRA LAGUNAS Oct 01, 2016 04:55
[2016-10-01] MEDS ORDERED: Albuterol 2.5 mg/3 mL Inhalation Solution NEB ONE (05:00)
[2016-10-01] MEDS ORDERED: _Albuterol-HFA 60 Puff Inhaler INHALATION PRN (05:00)
[2016-10-01] MEDS ORDERED: Albuterol-Ipratropium 3 mL Inhalation Solution NEB ONE (05:00)
[2016-10-01] MEDS ORDERED: predniSONE 20 mg Tablet PO ONE (05:00)
[2016-10-01 05:08] VITALS: PULSE 81; RESP 20; O2SAT 98
[2016-10-01] MEDS ORDERED: PRE20 PO (05:29)
[2016-10-01] MEDS ORDERED: ZIT250 PO (05:29)
[2016-10-01 05:44] VITALS: BP 129/77; PULSE 101; RESP 22; O2SAT 100
--- NOTE | 2016-10-01 08:49 | DRSVH ---
PROCEDURE: X-RAY CHEST, TWO VIEWS ([id number]) INDICATIONS: hemoptysis TECHNIQUE: 2 views of the chest were acquired. COMPARISON: [facility], CR, XR CHEST 1VW (PORTABLE), 09/26/2016, 9:16. FINDINGS: Surgical changes and devices: None. Lungs and pleura: No pleural effusions or pneumothorax. Lungs are clear. Mediastinum: Mediastinal contours are normal. Heart size is normal. Bones and chest wall: No suspicious bony abnormalities. Soft tissues appear unremarkable. IMPRESSION: Source of hemoptysis is not found, no pneumonia or neoplasm suspected. Dictated by: Bubba Sierra M.D. on 10/01/2016 at 8:47 Approved by: Bubba Sierra M.D. on 10/01/2016 at 8:47
--- NOTE | 2016-10-01 11:22 | NUR ---
spiritual care: pt approached bar welder in bar welder's office. Described recent medical care and requested help with transportation and prayer. Pt tearful as he recounted recent of and his new cancer diagnosis. He described plan to transport to brother's home in [place]. provided one bus pass.
== END 2016-10-01 05:31 | disposition home or self-care (01) ==
LOC: SED 04:21
DX: R04.2 Hemoptysis (principal); J44.0 Chronic obstructive pulmonary disease with (acute) lower respiratory infection; I10 Essential (primary) hypertension; F17.200 Nicotine dependence, unspecified, uncomplicated; F12.10 Cannabis abuse, uncomplicated; Z76.5 Malingerer [conscious simulation]; Z59.0 Homelessness; Z86.73 Personal history of transient ischemic attack (TIA), and cerebral infarction without residual deficits; Z79.51 Long term (current) use of inhaled steroids
CPT/HCPCS: 71020; 94664; 99284; J7613; J7620